=== PATIENT | male | born 1980 | race Caucasian/White ===

== ENCOUNTER 2019-04-07 13:38 | Emergency (ER) | payer OTHER ==
[2019-04-07 13:53] VITALS: BP 124/64; PULSE 92; TEMP 97.9; BMI 19.5
--- NOTE | 2019-04-07 14:16 | PDOC ---
History of Present Illness - General Chief Complaint: Rash Stated Complaint: RASH Time Seen by Provider: 04/07/19 13:56 History Source: Patient Exam Limitations: No Limitations - History of Present Illness Initial Comments: 04/07/19 14:20 38 year old male with no significant medical or surgical history presents with rash x 1 month. Patient states rash started with one lesion on left abdomen 2 months ago and now x 2 weeks with rash spreading all over torso. Reports a lot of itching. Timing/Duration: reports: week (2-4 weeks ) Severity: Yes: moderate Location: reports: extremities, face, torso Respiratory Risk Factors: reports: no cause identified Modifying Factors: improves with: antihistamine Associated Symptoms: reports: rash Past History - Travel Traveled outside of the country in the last 30 days: No Close contact w/someone who was outside of country & ill: No - Past Medical History Allergies/Adverse Reactions: Allergies Allergy/AdvReac Type Severity Reaction Status Date / Time No Known Allergies Allergy Verified 04/07/19 13:50 Home Medications: Ambulatory Orders Acyclovir [Zovirax -] 400 mg PO QID #28 tablet 04/07/19 Hydrocortisone 0.5% Cream [Hytone 0.5% Cream -] 1 applic TP TID #1 tube COPD: No - Suicide/Smoking/Psychosocial Hx Smoking History: Never smoked Have you smoked in the past 12 months: No Information on smoking cessation initiated: No Hx Alcohol Use: No Drug/Substance Use Hx: No Review of Systems - Review of Systems Able to Perform ROS?: Yes Is the patient limited Wolof proficient: No Constitutional: No: Chills, Fever, Weakness HEENTM: No: Nose Congestion, Hearing Loss, Throat Swelling Respiratory: No: Cough Cardiac (ROS): No: Chest Pain ABD/GI: No: Constipated, Poor Appetite, Poor Fluid Intake : No: Hematuria, Incontinence, Lesions Integumentary: Yes: Pruritus, Rash *Physical Exam - Vital Signs Last Vital Signs Temp Pulse Resp BP Pulse Ox 97.9 F 92 H 16 124/64 100 04/07/19 13:40 04/07/19 13:40 04/07/19 13:40 04/07/19 13:40 04/07/19 13:40 - Physical Exam General Appearance: Yes: Nourished, Appropriately Dressed HEENT: positive: TMs Normal, Pharynx Normal Neck: positive: Supple. negative: Carotid bruit, Lymphadenopathy (R), Lymphadenopathy (L) Respiratory/Chest: positive: Lungs Clear Cardiovascular: positive: Regular Rhythm, Regular Rate Extremity: positive: Normal Capillary Refill Neurologic: positive: Fully Oriented, Normal Response Medical Decision Making - Medical Decision Making 04/07/19 14:27 38 year old male with no significant medical or surgical history presents with rash x 1 month. Plan rx: acyclovir kenalog cream *DC/Admit/Observation/Transfer Diagnosis at time of Disposition: Pityriasis rosea - Discharge Dispostion Disposition: HOME Condition at time of disposition: Good - Prescriptions Prescriptions: Acyclovir [Zovirax -] 400 mg PO QID #28 tablet Hydrocortisone 0.5% Cream [Hytone 0.5% Cream -] 1 applic TP TID #1 tube - Referrals - Patient Instructions Printed Discharge Instructions: DI for Pityriasis Rosea Additional Instructions: Please take medication as prescribed. May also use caladryl lotion for itching Follow up with [facility] admin if rash not better in 2-3 weeks - Post Discharge Activity Forms/Work/School Notes: Back to Work
== END 2019-04-07 14:37 | disposition home or self-care (01) ==
LOC: JERFT 13:38
DX: L42 Pityriasis rosea (principal)
CPT/HCPCS: 99281-25